=== PATIENT | female | born 1985 | race Caucasian/White ===

== ENCOUNTER 2024-04-13 09:44 | Outpatient (AMB) | payer BC, SELFPAY ==
--- NOTE | 2024-04-13 09:46 | AM.OFFWIN_ITS ---
Intake Vital Signs 04/13/24 09:47 Height 5 ft 5 in Weight 168 lb BMI 28.0 BP 114/80 Blood Pressure Location Lt brachial Position Sitting Pulse 92 Pulse Source Pulse Oximeter Temp 98.3 F Temp Source Oral Pulse Oximetry (%) 99 Oxygen Delivery Method Room Air Intake Visit Reasons: EP Pain in LT upper abdomen Intake Note: pt c/o LT upper abdominal pain, dull and irritating, not sharp. Started a week ago Patient Tobacco Use Status: Never used Tobacco Allergies amoxicillin Adverse Reaction (Mild, Verified 04/13/24 09:46) Hives Do you need a note to return to daycare/school/sports/work: No HPI EP Pain in LT upper abdomen HPI Details This note is constructed using voice recognition software. While every effort has been made to ensure accuracy, rehabilitation caseworker errors may have been included. The patient is a 38 year old female who presents to the clinic today with LUQ abdomen pain intermittently for the last week. She has not noted any specific pattern to the pain. The pain is mild, and achy. 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 The symptoms do not seem to be worse after taking naproxen. She denies fever, chills, worsening pain, colic nature of pain, nausea, vomiting, early satiety, or change in stool pattern. She reports that she moves her bowels daily. She does report that she does occasionally get some blood after stool during her menses, which she had last week, but does not have currently, and this has been going on for quite some time, but no large volume bleeding. She has not tried anything to make it better, nothing seems to make it worse. She does have a primary care provider. [facility] Social History Patient Tobacco Use Status: Never used Tobacco Review of Systems Const All systems reviewed & are unremarkable except as noted in HPI and below Physical Exam Vital Signs: Last Vital Signs Temp 98.3 F 04/13/24 09:47 Pulse 92 04/13/24 09:47 BP 114/80 04/13/24 09:47 Pulse Ox 99 04/13/24 09:47 Oxygen Delivery Method Room Air 04/13/24 09:47 BMI result Body Mass Index 28.0 Const General: cooperative, healthy appearing, comfortable, no acute distress and alert Orientation/consciousness: patient oriented x3 Limitations: no limitations Resp Effort & Inspection: normal respiratory effort and able to speak in complete sentences Auscultation: clear to auscultation bilaterally Cardio Jugular venous distension: no JVD Palpation: normal PMI Rate: regular rate Heart sounds: S1 normal heart sound present, S2 normal heart sound present, no click, no gallops, no murmurs and no rubs GI Inspection: Yes normal to inspection Palpation (GI): Soft to palpation and nontender Percussion: Yes normal to percussion Auscultation: abnormal bowel sounds (Slightly hypoactive) Skin General skin exam: no rashes or lesions noted, elasticity normal and turgor normal Neuro General: patient oriented x3 Psych Appearance: grossly normal Mental Status: mental status grossly normal Speech and movement: Normal speech and movement present Affect: normal affect Assessment & Plan Assessment & Plan (1) LUQ abdominal pain: Code(s): R10.12 - Left upper quadrant pain Plan: Reassuring physical examination, no current indication for imaging. Advised patient to attempt Tums when symptoms occur next as this could be an acid reflux symptom. Advised use of NSAIDs only with food in stomach and to limit as able. Reviewed avoidance acidic foods, carbonated beverages, or anything to eat or drink within 2-3 hours of lying down. Additionally advised patient to follow up with PCP with chronic small volume bleeding after stool as she may benefit from diagnostic colonoscopy or other additional workup. Reviewed signs and symptoms that would indicate need to have urgent evaluation including large volume rectal bleeding, unrelenting pain. Plan See above for full details and plan. Coding Level of Care Code Est Pt Level 3 (91921) Diagnoses LUQ abdominal pain R10.12
[2024-04-13 09:47] VITALS: BP 114/80; PULSE 92; TEMP 36.8; O2SAT 99; BMI 28.0
== END 2024-04-13 11:16 | disposition home or self-care (01) ==
PROVIDERS: PCP Internal Medicine; Visit Provider Registered Nurse
DX: R10.12 Left upper quadrant pain (principal)

== ENCOUNTER → 2024-04-13 09:44 | Outpatient (BNVA) | payer BC, SELFPAY | PROVIDERS: PCP Internal Medicine | DX: R10.12 Left upper quadrant pain (principal) ==